=== PATIENT | male | born 1990 | race Caucasian/White ===

== ENCOUNTER 2017-02-12 21:15 | Emergency (ER) | payer MEDICAID, OTHER ==
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
[2017-02-12] MEDS ORDERED: Ketorolac 60 MG/2 ML SDV IM ONE (21:37)
[2017-02-12 22:31] VITALS: BP 108/50
--- NOTE | 2017-02-15 11:40 | CR ---
EXAM DATE: 02/12/17 PATIENT'S AGE: 26 Patient: SHAHNAZ SCHMITZ Facility: [place], [place] Site . Site : 1990 Study: XRay Extremity Left [id number]/7/2017 9:55:37 PM Ordering Physician: Doctor Pantoja Final Report: INDICATION: toe injury TECHNIQUE: Three views of the left great toe COMPARISON: None FINDINGS: Bones: Remote posttraumatic deformity of the interphalangeal joints of the left great toe medially. No acute fractures or bone lesions. Joint spaces: Degenerative change along the 1st metatarsophalangeal joint. Soft tissues: Unremarkable. IMPRESSION: No acute bony abnormality of the left great toe. Dictated by Tommie Bond MD @ 02/12/2017 10:06:39 PM Dictated by: Tommie Bond MD @ 02/12/2017 22:07:12 (Electronic Signature) Report Signed by Proxy. [email or web address]
== END 2017-02-12 22:25 | disposition home or self-care (01) ==
LOC: MW.ED 21:15
DX: S90.112A Contusion of left great toe without damage to nail, initial encounter (principal); W19.XXXA Unspecified fall, initial encounter; Y93.B2 Activity, push-ups, pull-ups, sit-ups
CPT/HCPCS: 73660-26-TA; 73660-TA; 99282; 99283

== ENCOUNTER 2019-06-09 07:36 | Emergency (ER) | payer MEDICAID ==
[2019-06-09] MEDS ORDERED: Sodium Chloride 0.9% 2.5 ML Syringe FLUSH PRN (07:40)
[2019-06-09] MEDS ORDERED: Sodium Chloride 0.9% 1,000 ML IV ONE (07:40)
[2019-06-09] MEDS ORDERED: Ketorolac 30 MG/ML SDV IVPUSH ONE (07:40)
[2019-06-09] MEDS ORDERED: Sodium Chloride 0.9% 10 ML Syringe FLUSH PRN (07:40)
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
[2019-06-09 08:14] LABS: BLOOD UREA NITROGEN,BUN 13 mg/dL (7.0-18.0); CARBON DIOXIDE,CO2 27.5 mmol/L (21.0-32.0); CHLORIDE,CL 106 mmol/L (98-107); GLUCOSE RANDOM 105 mg/dL (74-106); LIPASE 91 U/L (73-393); POTASSIUM,K 4.2 mmol/L (3.5-5.1); SODIUM,NA 143 mmol/L (136-148)
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
[2019-06-09] MEDS ORDERED: Diphtheria,Pertussis(Acell),Tetanus Vaccine 0.5 ML Syringe IM ONE (09:28)
[2019-06-09 09:41] VITALS: BP 137/87; PULSE 60
== END 2019-06-09 09:39 | disposition home or self-care (01) ==
LOC: MW.ED 07:36
DX: S93.402A Sprain of unspecified ligament of left ankle, initial encounter (principal); S60.512A Abrasion of left hand, initial encounter; Z23 Encounter for immunization; Z88.2 Allergy status to sulfonamides; V89.2XXA Person injured in unspecified motor-vehicle accident, traffic, initial encounter; Y92.410 Unspecified street and highway as the place of occurrence of the external cause
CPT/HCPCS: 70450; 71045; 71260; 72125; 73130; 73562; 73590; 73610; 80053; 81001; 83690; 85025; 90471; 90715; 96361; 96374; 99285; J1885; J7040; 99284

== ENCOUNTER 2020-03-06 15:06 | Emergency (ER) | payer MEDICAID ==
[2020-03-06 15:22] VITALS: BP 135/68; PULSE 87
--- NOTE | 2020-03-06 16:31 | CR ---
Right hand: 3 views of the right hand were obtained. Comparison: No previous hand study is available. Old fracture is noted within the 5th metacarpal shaft. This appears to be healed. Joint spaces are preserved. No acute fracture or other bony abnormality is appreciated. Mild soft tissue swelling appears to be present. Impression: 1. Old healed fracture within 5th metacarpal. 2. Mild soft tissue swelling. 3. No definite acute bony abnormality is appreciated. If patient remains symptomatic, repeat study in 10-14 days could be considered. Diagnostic code #3 This report was dictated in MDT
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
== END 2020-03-06 16:49 | disposition home or self-care (01) ==
LOC: MW.ED 15:06
DX: S60.221A Contusion of right hand, initial encounter (principal); F17.210 Nicotine dependence, cigarettes, uncomplicated; Z88.2 Allergy status to sulfonamides; Y04.0XXA Assault by unarmed brawl or fight, initial encounter
CPT/HCPCS: 73130-26-RT; 73130-RT; 99283-25

== ENCOUNTER 2021-02-26 12:24 | Observation (INO) | payer MEDICAID, OTHER ==
--- NOTE | 2021-02-26 12:51 | EDM.PDOC ---
ED HPI GENERAL MEDICAL PROBLEM - General Chief Complaint: Chest Pain Stated Complaint: CHEST PAIN NUMBNESS IN TOUNGUE Time Seen by Provider: 02/26/21 12:26 Source of Information: Reports: Patient History Limitations: Reports: No Limitations - History of Present Illness INITIAL COMMENTS - FREE TEXT/NARRATIVE: Patient is a 30-year-old male presents today for left-sided chest pain that radiates to the left arm he states that is like a squeezing feeling. States that make the pain better or worse has not tried any medication for the pain at home. Patient denies any other associated symptoms or shortness of breath fever chills or cough. He does report some low back pain that he chronically has denies any urinary incontinence saddle anesthesia or other concerning symptoms. chest Pain Score (Numeric/FACES): 3 - Related Data Allergies Allergy/AdvReac Type Severity Reaction Status Date / Time Sulfa (Sulfonamide Allergy Hives Verified 02/26/21 12:25 Antibiotics) Home Meds: Home Meds Famotidine 10 mg PO DAILY 02/26/21 [History] Past Medical History HEENT History: Reports: None Cardiovascular History: Reports: None Respiratory History: Reports: None Gastrointestinal History: Reports: None Genitourinary History: Reports: None Neurological History: Reports: None Psychiatric History: Reports: Anxiety, PTSD Endocrine/Metabolic History: Reports: None Hematologic History: Reports: None Immunologic History: Reports: None Oncologic (Cancer) History: Reports: None Dermatologic History: Reports: None - Infectious Disease History Infectious Disease History: Reports: None - Past Surgical History Head Surgeries/Procedures: Reports: None HEENT Surgical History: Reports: Tonsillectomy Musculoskeletal Surgical History: Reports: Other (See Below) Other Musculoskeletal Surgeries/Procedures:: right femur fx, and R hand Social & Family History - Family History Family Medical History: No Pertinent Family History - Tobacco Use Tobacco Use Status *Q: Current Every Day Tobacco User Years of Tobacco use: 20 Packs/Tins Daily: 1 - Caffeine Use Caffeine Use: Reports: Coffee - Recreational Drug Use Recreational Drug Use: Yes Recreational Drug Type: Reports: Marijuana/Hashish ED ROS GENERAL - Review of Systems Review Of Systems: See Below Constitutional: Reports: No Symptoms HEENT: Reports: No Symptoms Respiratory: Reports: No Symptoms Cardiovascular: Reports: Chest Pain Endocrine: Reports: No Symptoms GI/Abdominal: Reports: No Symptoms : Reports: No Symptoms Musculoskeletal: Reports: No Symptoms Skin: Reports: No Symptoms Neurological: Reports: No Symptoms Psychiatric: Reports: No Symptoms Hematologic/Lymphatic: Reports: No Symptoms Immunologic: Reports: No Symptoms ED EXAM, GENERAL - Physical Exam Exam: See Below Exam Limited By: No Limitations General Appearance: Alert, WD/WN, No Apparent Distress Respiratory/Chest: No Respiratory Distress, Lungs Clear, Normal Breath Sounds Cardiovascular: Normal Peripheral Pulses, Regular Rate, Rhythm GI/Abdominal: Normal Bowel Sounds, Soft, Non-Tender Extremities: Normal Inspection, Normal Range of Motion Neurological: Alert, Oriented, CN II-XII Intact, Normal Cognition, Normal Gait #1 Interpretation EKG Date: 02/26/21 Time: 12:19 Rhythm: NSR Rate (Beats/Min): 65 ST-T: Normal #2 Interpretation EKG Date: 02/26/21 Time: 18:03 Rhythm: Other (sinus mina) Rate (Beats/Min): 42 ST-T: Normal Course - Vital Signs Last Recorded V/S: Last Vital Signs Temp 97.0 F 02/26/21 12:26 Pulse 43 L 02/26/21 17:57 Resp 18 02/26/21 17:57 BP 116/81 02/26/21 17:57 Pulse Ox 98 02/26/21 17:57 - Orders/Labs/Meds Orders: Active Orders 24 hr Category Date Time Status Patient Status [ADT] Routine ADT 02/26/21 18:17 Active EKG 12 Lead [EKG Documentation Completion] [RC] STAT Care 02/26/21 13:04 Active EKG 12 Lead [EKG Documentation Completion] [RC] STAT Care 02/26/21 17:56 Active Labs: Laboratory Tests 02/26/21 02/26/21 02/26/21 Range/Units 12:35 12:35 15:55 WBC 5.53 (4.0-11.0) K/uL RBC 5.07 (4.50-5.90) M/uL Hgb 14.7 (13.0-17.0) g/dL Hct 43.4 (38.0-50.0) % MCV 85.6 (80.0-98.0) fL MCH 29.0 (27.0-32.0) pg MCHC 33.9 (31.0-37.0) g/dL RDW Std Deviation 40.1 (28.0-62.0) fl RDW Coeff of Marcelina 13 (11.0-15.0) % Plt Count 235 (150-400) K/uL MPV 10.70 (7.40-12.00) fL Neut % (Auto) 48.2 (48.0-80.0) % Lymph % (Auto) 36.2 (16.0-40.0) % Coke % (Auto) 11.0 (0.0-15.0) % Eos % (Auto) 4.2 (0.0-7.0) % Baso % (Auto) 0.4 (0.0-1.5) % Neut # (Auto) 2.7 (1.4-5.7) K/uL Lymph # (Auto) 2.0 (0.6-2.4) K/uL Coke # (Auto) 0.6 (0.0-0.8) K/uL Eos # (Auto) 0.2 (0.0-0.7) K/uL Baso # (Auto) 0.0 (0.0-0.1) K/uL Nucleated RBC % 0.0 /100WBC Nucleated RBCs # 0 K/uL Sodium 139 (136-148) mmol/L Potassium 3.9 (3.5-5.1) mmol/L Chloride 104 (98-107) mmol/L Carbon Dioxide 27.0 (21.0-32.0) mmol/L BUN 11 (7.0-18.0) mg/dL Creatinine 0.8 (0.8-1.3) mg/dL Est Cr Clr Drug Dosing 154.13 mL/min Estimated GFR (MDRD) > 60.0 ml/min Glucose 98 (74-106) mg/dL Calcium 8.7 (8.5-10.1) mg/dL Phosphorus 3.1 (2.6-4.7) mg/dL Magnesium 2.0 (1.8-2.4) mg/dL Total Bilirubin 0.5 (0.2-1.0) mg/dL AST 31 (15-37) IU/L ALT 80 H (14-63) IU/L Alkaline Phosphatase 63 (46-116) U/L Creatine Kinase 393 H 349 H (26-308) U/L Troponin I < 0.050 < 0.050 (0.000-0.056) ng/mL Total Protein 7.3 (6.4-8.2) g/dL Albumin 4.0 (3.4-5.0) g/dL Globulin 3.3 (2.6-4.0) g/dL Albumin/Globulin Ratio 1.2 (0.9-1.6) Lipase 64 L (73-393) U/L SARS-CoV-2 RNA (CLIFFORD) (NEGATIVE) 02/26/21 Range/Units 17:30 WBC (4.0-11.0) K/uL RBC (4.50-5.90) M/uL Hgb (13.0-17.0) g/dL Hct (38.0-50.0) % MCV (80.0-98.0) fL MCH (27.0-32.0) pg MCHC (31.0-37.0) g/dL RDW Std Deviation (28.0-62.0) fl RDW Coeff of Marcelina (11.0-15.0) % Plt Count (150-400) K/uL MPV (7.40-12.00) fL Neut % (Auto) (48.0-80.0) % Lymph % (Auto) (16.0-40.0) % Coke % (Auto) (0.0-15.0) % Eos % (Auto) (0.0-7.0) % Baso % (Auto) (0.0-1.5) % Neut # (Auto) (1.4-5.7) K/uL Lymph # (Auto) (0.6-2.4) K/uL Coke # (Auto) (0.0-0.8) K/uL Eos # (Auto) (0.0-0.7) K/uL Baso # (Auto) (0.0-0.1) K/uL Nucleated RBC % /100WBC Nucleated RBCs # K/uL Sodium (136-148) mmol/L Potassium (3.5-5.1) mmol/L Chloride (98-107) mmol/L Carbon Dioxide (21.0-32.0) mmol/L BUN (7.0-18.0) mg/dL Creatinine (0.8-1.3) mg/dL Est Cr Clr Drug Dosing mL/min Estimated GFR (MDRD) ml/min Glucose (74-106) mg/dL Calcium (8.5-10.1) mg/dL Phosphorus (2.6-4.7) mg/dL Magnesium (1.8-2.4) mg/dL Total Bilirubin (0.2-1.0) mg/dL AST (15-37) IU/L ALT (14-63) IU/L Alkaline Phosphatase (46-116) U/L Creatine Kinase (26-308) U/L Troponin I (0.000-0.056) ng/mL Total Protein (6.4-8.2) g/dL Albumin (3.4-5.0) g/dL Globulin (2.6-4.0) g/dL Albumin/Globulin Ratio (0.9-1.6) Lipase (73-393) U/L SARS-CoV-2 RNA ([facility]ORD) NEGATIVE (NEGATIVE) Meds: Medications Discontinued Medications Generic Name Dose Route Start Last Admin Trade Name Garry PRN Reason Stop Dose Admin Aspirin 324 mg 02/26/21 14:05 02/26/21 14:13 Aspirin 81 Mg Tab.Chew PO 02/26/21 14:06 324 mg ONETIME ONE Administration Iopamidol 50 ml 02/26/21 17:14 02/26/21 17:26 Iopamidol 755 Mg/Ml 50 Ml Bottle IV 02/26/21 17:15 50 ml ONETIME STA Administration - Re-Assessments/Exams Free Text/Narrative Re-Assessment/Exam: 02/26/21 18:18 Heart rate has been bradycardic down to the 38 to the mid 40s. Patient is symptomatic he is lightheaded when he walks. We spoke to the cardiology [place] and he states that due to his size it could be sleep apnea recommend observing patient overnight. We spoke to hospitalist and patient will be admitted. Departure - Departure Time of Disposition: 18:17 Disposition: Refer to Observation Condition: Good Clinical Impression: Bradycardia Critical Care Note - Critical Care Note Total Time (mins): 45 Comments: Critical Care Procedure Note Authorized and Performed by: Dr. Batres Total critical care time: Approximately Due to a high probability of clinically significant, life threatening deterioration, the patient required my highest level of preparedness to intervene emergently and I personally spent this critical care time directly and personally managing the patient. This critical care time included obtaining a history; examining the patient; pulse oximetry; ordering and review of studies; arranging urgent treatment with development of a management plan; evaluation of patient's response to treatment; frequent reassessment; and, discussions with other providers. This critical care time was performed to assess and manage the high probability of imminent, life-threatening deterioration that could result in multi-organ failure. It was exclusive of separately billable procedures and treating other patients and teaching time. Sepsis Event Note (ED) - Evaluation Sepsis Screening Result: No Definite Risk - Focused Exam Vital Signs: Vital Signs Temp Pulse Resp BP Pulse Ox 02/26/21 17:57 43 L 18 116/81 98 02/26/21 16:45 64 18 112/72 98 02/26/21 16:06 74 18 118/74 98 02/26/21 15:03 48 L 18 111/56 L 96 02/26/21 14:14 64 18 117/66 98 02/26/21 13:41 62 18 125/74 98 02/26/21 13:16 58 L 18 123/75 98 02/26/21 12:26 97.0 F 68 18 134/95 H 97 - My Orders Last 24 Hours: My Active Orders 02/26/21 13:04 EKG 12 Lead [EKG Documentation Completion] [RC] STAT 02/26/21 17:56 EKG 12 Lead [EKG Documentation Completion] [RC] STAT 02/26/21 18:17 Patient Status [ADT] Routine - Assessment/Plan Last 24 Hours: My Active Orders 02/26/21 13:04 EKG 12 Lead [EKG Documentation Completion] [RC] STAT 02/26/21 17:56 EKG 12 Lead [EKG Documentation Completion] [RC] STAT 02/26/21 18:17 Patient Status [ADT] Routine Plan: Patient is a 30-year-old male presents today for left-sided chest pain. Patient has a heart score of 0. Will obtain troponins labs EKG and reassess.
[2021-02-26 13:45] LABS: BLOOD UREA NITROGEN,BUN 11 mg/dL (7.0-18.0); CHLORIDE,CL 104 mmol/L (98-107); GLUCOSE RANDOM 98 mg/dL (74-106); LIPASE 64 U/L (73-393); POTASSIUM,K 3.9 mmol/L (3.5-5.1); SODIUM,NA 139 mmol/L (136-148)
--- NOTE | 2021-02-26 13:48 | CR ---
INDICATION: Left-sided chest pain TECHNIQUE: Chest 1 views COMPARISON: 06/09/2019 FINDINGS: Cardiovascular and mediastinum: Heart size and vasculature are normal in caliber and appearance. Lungs and pleural spaces: Lungs are clear. No sign of infiltrate or mass. No sign of pleural effusion. No pneumothorax. Bones and soft tissues: No significant findings. IMPRESSION: No acute findings and no significant changes from the prior exam. Dictated by Aryan Luther MD @ 02/26/2021 1:47:[address] Aryan Luther @ Feb 26 2021 1:47PM
[2021-02-26] MEDS ORDERED: Aspirin 81 MG Tab.Chew PO ONE (14:05)
[2021-02-26] MEDS ORDERED: Iopamidol 755 MG/ML 50 ML Bottle IV STA (17:14)
--- NOTE | 2021-02-26 18:20 | CT ---
DATE: 02/26/2021. CLINICAL HISTORY: Patient with lightheadedness and headaches. TECHNIQUE: Standard helical CT image acquisition of the brain was performed prior to and following the administration of intravenous contrast. COMPARISON: Head CT dated 06/09/2019. FINDINGS: There is no intracranial hemorrhage. No extra-axial collection, mass effect, or midline shift. Stuart-white matter differentiation is maintained. Ventricles are normal in size and morphology for patient age. No evidence of pathologic intracranial enhancement. The calvarium is unremarkable. The orbits are unremarkable. The paranasal sinuses are unremarkable. The mastoid air cells are unremarkable. The soft tissues are unremarkable. IMPRESSION: No CT evidence of acute intracranial abnormality or pathologic intracranial enhancement. Please note that all CT scans at this facility use dose modulation, iterative reconstruction, and/or weight-based dosing when appropriate to reduce radiation dose to as low as reasonably achievable. Dictated by Mickey Castro MD @ 02/26/2021 6:19:[address] Mickey Castro @ Feb 26 2021 6:19PM
[2021-02-26] MEDS ORDERED: Albuterol/Ipratropium 3.0-0.5 MG/3 ML Neb Soln NEB PRN (18:57)
[2021-02-26] MEDS ORDERED: Morphine 10 MG/ML Syringe IVPUSH PRN (18:57)
[2021-02-26] MEDS ORDERED: Ondansetron 4 MG/2 ML SDV IVPUSH PRN (18:57)
[2021-02-26] MEDS ORDERED: Acetaminophen 325 MG Tab PO PRN (18:57)
--- NOTE | 2021-02-26 19:04 | PCM.HP.2 ---
H&P History of Present Illness - General Date of Service: 02/27/21 Admit Problem/Dx: Admission Diagnosis/Problem Admission Diagnosis/Problem Bradycardia Source of Information: Patient History Limitations: Reports: No Limitations - History of Present Illness Initial Comments - Free Text/Narative: Patient is a 30 y/o M with no significant PMH comes in for chest discomfort that started this AM after he woke up. He states he had his coffee this AM and soon after felt a dull aching pain in his left chest. He didnt think much of it but later he went to [facility] and felt his pain was worse, he also felt warm and flushed and dizzy. Denied any similar episodes in past. Unsure if he snores at night. States he has gained alot of weight for past few years. as been eating and drinking well. Denied palpitations, N/V abdominal pain, fever, chills, syncope, urinary symptoms. Patient has significant family h/o cardiac events, states his mom of sudden cardiac arrest in her sleep. in ER labs were unremarkable, troponin negative, ekg showed sinus bradycardia, on tele his HR dipped to as low as in 30s and jumped right back up to 50s to 60s. cardiology in [facility] was consulted, no indication for transfer, recommended overnight observation and outpatient sleep study. Patient was admitted for observation chest Pain Score (Numeric/FACES): 3 - Related Data Allergies/Adverse Reactions: Allergies Allergy/AdvReac Type Severity Reaction Status Date / Time Sulfa (Sulfonamide Allergy Hives Verified 02/26/21 20:10 Antibiotics) Home Medications: Home Meds Famotidine 10 mg PO DAILY 02/26/21 [History] Past Medical History HEENT History: Reports: None Cardiovascular History: Reports: None Respiratory History: Reports: None Gastrointestinal History: Reports: None Genitourinary History: Reports: None Neurological History: Reports: None Psychiatric History: Reports: Anxiety, PTSD Endocrine/Metabolic History: Reports: None Hematologic History: Reports: None Immunologic History: Reports: None Oncologic (Cancer) History: Reports: None Dermatologic History: Reports: None - Infectious Disease History Infectious Disease History: Reports: None - Past Surgical History Head Surgeries/Procedures: Reports: None HEENT Surgical History: Reports: Tonsillectomy Musculoskeletal Surgical History: Reports: Other (See Below) Other Musculoskeletal Surgeries/Procedures:: right femur fx, and R hand Social & Family History - Family History Cardiac: Reports: Hypertension, Other (See Below) (cardiac arrest, mother) - Tobacco Use Tobacco Use Status *Q: Current Every Day Tobacco User Years of Tobacco use: 20 Packs/Tins Daily: 1 - Caffeine Use Caffeine Use: Reports: Coffee - Recreational Drug Use Recreational Drug Use: Yes Recreational Drug Type: Reports: Marijuana/Hashish H&P Review of Systems - Review of Systems: Review Of Systems: See Below General: Reports: Diaphoresis. Denies: Fever, Chills, Malaise, Weight Loss, Weight Gain HEENT: Denies: Dysphasia, Headaches, Sinus Congestion, Vertigo, Visual Changes Pulmonary: Denies: Shortness of Breath, Wheezing, Sputum Cardiovascular: Reports: Chest Pain, Lightheadedness. Denies: Palpitations, Dyspnea on Exertion, Orthopnea, Syncope Gastrointestinal: Denies: Abdominal Pain, Anorexia, Black Stool, Nausea Genitourinary: Denies: Dysuria, Frequency Musculoskeletal: Denies: Neck Pain, Shoulder Pain Skin: Denies: Cyanosis, Jaundice, Mottled Psychiatric: Denies: Confusion, Depression Neurological: Reports: Dizziness. Denies: Confusion, Headache, Paresthesia, Difficulty Walking, Weakness, Change in Speech, Gait Disturbance Hematologic/Lymphatic: Denies: Anemia, Easy Bleeding Exam - Exam Exam: See Below - Vital Signs Vital Signs: Last Vital Signs Temp 36.1 C 02/26/21 12:26 Pulse 43 L 02/26/21 17:57 Resp 18 02/26/21 17:57 BP 116/81 02/26/21 17:57 Pulse Ox 98 02/26/21 17:57 Weight: 124.738 kg - Exam General: Alert, Oriented, Cooperative HEENT: Conjunctiva Clear Neck: Supple, Trachea Midline Lungs: Clear to Auscultation, Normal Respiratory Effort Cardiovascular: Regular Rate, Regular Rhythm, Normal S1, Normal S2 GI/Abdominal Exam: Normal Bowel Sounds, Soft, Non-Tender Back Exam: Normal Inspection Skin: Warm, Dry Neurological: Cranial Nerves Intact, Strength Equal Bilateral, Normal Gait, Normal Speech, Normal Tone, Sensation Intact. No: Focal Deficit - Patient Data Lab Results Last 24 hrs: Laboratory Results - last 24 hr 02/26/21 02/26/21 02/26/21 Range/Units 12:35 12:35 15:55 WBC 5.53 (4.0-11.0) K/uL RBC 5.07 (4.50-5.90) M/uL Hgb 14.7 (13.0-17.0) g/dL Hct 43.4 (38.0-50.0) % MCV 85.6 (80.0-98.0) fL MCH 29.0 (27.0-32.0) pg MCHC 33.9 (31.0-37.0) g/dL RDW Std Deviation 40.1 (28.0-62.0) fl RDW Coeff of Marcelina 13 (11.0-15.0) % Plt Count 235 (150-400) K/uL MPV 10.70 (7.40-12.00) fL Neut % (Auto) 48.2 (48.0-80.0) % Lymph % (Auto) 36.2 (16.0-40.0) % [place] % (Auto) 11.0 (0.0-15.0) % Eos % (Auto) 4.2 (0.0-7.0) % Baso % (Auto) 0.4 (0.0-1.5) % Neut # (Auto) 2.7 (1.4-5.7) K/uL Lymph # (Auto) 2.0 (0.6-2.4) K/uL [place] # (Auto) 0.6 (0.0-0.8) K/uL Eos # (Auto) 0.2 (0.0-0.7) K/uL Baso # (Auto) 0.0 (0.0-0.1) K/uL Nucleated RBC % 0.0 /100WBC Nucleated RBCs # 0 K/uL Sodium 139 (136-148) mmol/L Potassium 3.9 (3.5-5.1) mmol/L Chloride 104 (98-107) mmol/L Carbon Dioxide 27.0 (21.0-32.0) mmol/L BUN 11 (7.0-18.0) mg/dL Creatinine 0.8 (0.8-1.3) mg/dL Est Cr Clr Drug Dosing 154.13 mL/min Estimated GFR (MDRD) > 60.0 ml/min Glucose 98 (74-106) mg/dL Calcium 8.7 (8.5-10.1) mg/dL Phosphorus 3.1 (2.6-4.7) mg/dL Magnesium 2.0 (1.8-2.4) mg/dL Total Bilirubin 0.5 (0.2-1.0) mg/dL AST 31 (15-37) IU/L ALT 80 H (14-63) IU/L Alkaline Phosphatase 63 (46-116) U/L Creatine Kinase 393 H 349 H (26-308) U/L Troponin I < 0.050 < 0.050 (0.000-0.056) ng/mL Total Protein 7.3 (6.4-8.2) g/dL Albumin 4.0 (3.4-5.0) g/dL Globulin 3.3 (2.6-4.0) g/dL Albumin/Globulin Ratio 1.2 (0.9-1.6) Lipase 64 L (73-393) U/L SARS-CoV-2 RNA (CLIFFORD) (NEGATIVE) 02/26/21 Range/Units 17:30 WBC (4.0-11.0) K/uL RBC (4.50-5.90) M/uL Hgb (13.0-17.0) g/dL Hct (38.0-50.0) % MCV (80.0-98.0) fL MCH (27.0-32.0) pg MCHC (31.0-37.0) g/dL RDW Std Deviation (28.0-62.0) fl RDW Coeff of Marcelina (11.0-15.0) % Plt Count (150-400) K/uL MPV (7.40-12.00) fL Neut % (Auto) (48.0-80.0) % Lymph % (Auto) (16.0-40.0) % [place] % (Auto) (0.0-15.0) % Eos % (Auto) (0.0-7.0) % Baso % (Auto) (0.0-1.5) % Neut # (Auto) (1.4-5.7) K/uL Lymph # (Auto) (0.6-2.4) K/uL [place] # (Auto) (0.0-0.8) K/uL Eos # (Auto) (0.0-0.7) K/uL Baso # (Auto) (0.0-0.1) K/uL Nucleated RBC % /100WBC Nucleated RBCs # K/uL Sodium (136-148) mmol/L Potassium (3.5-5.1) mmol/L Chloride (98-107) mmol/L Carbon Dioxide (21.0-32.0) mmol/L BUN (7.0-18.0) mg/dL Creatinine (0.8-1.3) mg/dL Est Cr Clr Drug Dosing mL/min Estimated GFR (MDRD) ml/min Glucose (74-106) mg/dL Calcium (8.5-10.1) mg/dL Phosphorus (2.6-4.7) mg/dL Magnesium (1.8-2.4) mg/dL Total Bilirubin (0.2-1.0) mg/dL AST (15-37) IU/L ALT (14-63) IU/L Alkaline Phosphatase (46-116) U/L Creatine Kinase (26-308) U/L Troponin I (0.000-0.056) ng/mL Total Protein (6.4-8.2) g/dL Albumin (3.4-5.0) g/dL Globulin (2.6-4.0) g/dL Albumin/Globulin Ratio (0.9-1.6) Lipase (73-393) U/L SARS-CoV-2 RNA (CLIFFORD) NEGATIVE (NEGATIVE) Result Diagrams: 02/26/21 12:35 02/26/21 12:35 Sepsis Event Note - Evaluation Sepsis Screening Result: No Definite Risk - Focused Exam Vital Signs: Vital Signs Temp Pulse Resp BP Pulse Ox 02/26/21 17:57 43 L 18 116/81 98 02/26/21 16:45 64 18 112/72 98 02/26/21 16:06 74 18 118/74 98 02/26/21 15:03 48 L 18 111/56 L 96 02/26/21 14:14 64 18 117/66 98 02/26/21 13:41 62 18 125/74 98 02/26/21 13:16 58 L 18 123/75 98 02/26/21 12:26 36.1 C 68 18 134/95 H 97 - Problem List (1) Obesity SNOMED Code(s): 943761197, 755479080 ICD Code: E66.9 - OBESITY, UNSPECIFIED Status: Acute Current Visit: Yes (2) Chest pain SNOMED Code(s): 46295011 ICD Code: R07.9 - CHEST PAIN, UNSPECIFIED Status: Acute Current Visit: Yes (3) Bradycardia SNOMED Code(s): 39548219 ICD Code: R00.1 - BRADYCARDIA, UNSPECIFIED Status: Acute Current Visit: Yes (4) Dizziness SNOMED Code(s): 804657779, 729772231 ICD Code: R42 - DIZZINESS AND GIDDINESS Status: Acute Current Visit: Yes Problem List Initiated/Reviewed/Updated: Yes Orders Last 24hrs: Active Orders 24 hr Category Date Time Status Patient Status [ADT] Routine ADT 02/26/21 18:17 Active Ambulate [RC] ASDIRECTED Care 02/26/21 18:57 Ordered Antiembolic Devices [RC] PER UNIT ROUTINE Care 02/26/21 18:58 Ordered EKG 12 Lead [EKG Documentation Completion] [RC] STAT Care 02/26/21 13:04 Active EKG 12 Lead [EKG Documentation Completion] [RC] STAT Care 02/26/21 17:56 Active Oxygen Therapy [RC] PRN Care 02/26/21 18:57 Ordered Pulse Oximetry [RC] PRN Care 02/26/21 18:57 Ordered RT Aerosol Therapy [RC] ASDIRECTED Care 02/26/21 18:59 Ordered VTE/DVT Education [RC] PER UNIT ROUTINE Care 02/26/21 18:57 Ordered Vital Signs [RC] Q4H Care 02/26/21 18:57 Ordered Heart Healthy Diet [DIET] Diet 02/26/21 Dinner Ordered GLYCOSYLATED HEMOGLOBIN,HGBA1C [CHEM] Routine Lab 02/26/21 19:01 Ordered LIPID PANEL [CHEM] Routine Lab 02/26/21 19:02 Ordered TROPONIN I [CHEM] Routine Lab 02/26/21 19:00 Ordered TSH REFLEX TO FREE T4 [CHEM] Routine Lab 02/26/21 19:01 Ordered Acetaminophen [TylenoL] Med 02/26/21 18:57 Ordered 650 mg PO Q4H PRN Albuterol/Ipratropium [DuoNeb 3.0-0.5 MG/3 ML] Med 02/26/21 18:57 Ordered 3 ml NEB Q4HRRT PRN Lactated Ringers @ 125 MLS/HR(1000ml) Med 02/26/21 19:00 Ordered Lactated Ringers [Ringers, Lactated] 1,000 ml IV ASDIRECTED Morphine Med 02/26/21 18:57 Ordered 1 mg IVPUSH Q3H PRN Ondansetron [Zofran] Med 02/26/21 18:57 Ordered 4 mg IVPUSH Q4H PRN Sequential Compression Device [OM.PC] Per Unit Routine Oth 02/26/21 18:57 Ordered Resuscitation Status Routine Resus Stat 02/26/21 18:57 Ordered Medication Orders Acetaminophen (Acetaminophen 325 Mg Tab) 650 mg PO Q4H PRN PRN Reason: Pain (Mild 1-3)/fever Albuterol/Ipratropium (Albuterol/Ipratropium 3.0-0.5 Mg/3 Ml Neb Soln) 3 ml NEB Q4HRRT PRN PRN Reason: Shortness Of Breath/wheezing Lactated Ringer's (Ringers, Lactated) 1,000 mls @ 125 mls/hr IV ASDIRECTED [facility] Morphine Sulfate (Morphine 10 Mg/Ml Syringe) 1 mg IVPUSH Q3H PRN PRN Reason: Pain (severe 7-10) Stop: 02/27/21 18:58 Ondansetron HCl (Ondansetron 4 Mg/2 Ml Sdv) 4 mg IVPUSH Q4H PRN PRN Reason: Nausea/Vomiting Assessment/Plan Comment:: 30 y/o M admitted for bradycardia and dizziness EKG shows no ischemic changes or heart block, no on any rate limiting meds troponin negative Possible component on SHELLY? cont tele monitoring trend troponin avoid any b antonietta, Ca channel antonietta check Hba1c, TSH, lipids start ASA, low dose statin Zio patch upon dc referral for sleep study obtain 2d ECHO
[2021-02-26 19:35] LABS: HEMOGLOBIN A1C 5.8 %
[2021-02-26] MEDS: Lactated Ringers 1,000 ML IV SCH (20:00)
[2021-02-27] MEDS: Lactated Ringers 1,000 ML IV SCH (03:59)
[2021-02-27 07:58] VITALS: BP 123/77; PULSE 42
[2021-02-27] MEDS ORDERED: Famotidine 20 MG Tab PO SCH (09:00)
[2021-02-27] MEDS ORDERED: Aspirin 81 MG Tab.Chew PO SCH (09:00)
--- NOTE | 2021-02-27 12:47 | PCM.DCSUM1 ---
Discharge Summary - Hospital Course Free Text/Narrative:: Patient is a 30 y/o M with no significant PMH comes in for chest discomfort that started this AM after he woke up. He states he had his coffee this AM and soon after felt a dull aching pain in his left chest. He didnt think much of it but later he went to [facility] and felt his pain was worse, he also felt warm and flushed and dizzy. Denied any similar episodes in past. Unsure if he snores at night. States he has gained alot of weight for past few years. as been eating and drinking well. Denied palpitations, N/V abdominal pain, fever, chills, syncope, urinary symptoms. Patient has significant family h/o cardiac events, states his mom of sudden cardiac arrest in her sleep. in ER labs were unremarkable for any heart block showed sinus bradycardia, troponin negative, ekg showed sinus bradycardia, on tele his HR dipped to as low as in 30s and jumped right back up to 50s to 60s. cardiology in [facility] was consulted, no indication for transfer, recommended overnight observation and outpatient sleep study. Patient was admitted for observation. Troponins were trended which were all negative, patient was monitored overnight on telemetry which showed sinus bradycardia and bradycardia arrhythmia. No heart block or missed beats noted. Patient's dizziness had resolved the next day. He did say he has history of spondylitis and whenever he turns his head he sometimes gets dizzy so that could have been a contributing factor to his dizziness on top of being in the heat the day he came in. Family was at bedside the next day who confirmed that patient has significant snoring history and does have apneic episodes overnight. Patients bradycardia was most likely secondary to undiagnosed sleep apnea and was referred for sleep study. 2D echo was obtained as well the report of which is still pending. Patient was started on low-dose aspirin and low-dose statin and routine labs were checked as well which were all normal except for slightly elevated cholesterol of 214. Patient was counseled about quitting smoking as well, and maintaining a healthy lifestyle and losing some weight. Patient was hemodynamically stable was able to walk around without dizziness, presyncope. Patient was referred to a tailings worker upon discharge and recommended to follow-up with his primary care physician as well. Diagnosis: Stroke: No - Discharge Data Discharge Date: 02/27/21 Discharge Disposition: Home, Self-Care 01 Condition: Stable - Referral to Home Health Primary Care Physician: Jorge Lisa MD - Discharge Diagnosis/Problem(s) (1) Obesity SNOMED Code(s): 305887362, 875956825 ICD Code: E66.9 - OBESITY, UNSPECIFIED Status: Acute Current Visit: Yes (2) Chest pain SNOMED Code(s): 30904094 ICD Code: R07.9 - CHEST PAIN, UNSPECIFIED Status: Acute Current Visit: Yes (3) Bradycardia SNOMED Code(s): 23378579 ICD Code: R00.1 - BRADYCARDIA, UNSPECIFIED Status: Acute Current Visit: Yes (4) Dizziness SNOMED Code(s): 652547260, 628515326 ICD Code: R42 - DIZZINESS AND GIDDINESS Status: Acute Current Visit: Yes - Patient Instructions Diet: Usual Diet as Tolerated Activity: As Tolerated Driving: May Drive Today Showering/Bathing: May Shower Notify Provider of: Fever, Increased Pain, Swelling and Redness, Nausea and/or Vomiting Other/Special Instructions: Notify In case of increasing dizziness, chest pain, syncope, presyncope - Discharge Plan Prescriptions/Med Rec: Aspirin 81 mg PO DAILY #30 tab.chew atorvaSTATin [Lipitor] 10 mg PO BEDTIME #30 tablet Home Medications: Home Meds Famotidine 10 mg PO DAILY 02/26/21 [History] Aspirin 81 mg PO DAILY #30 tab.chew 02/27/21 [Rx] atorvaSTATin [Lipitor] 10 mg PO BEDTIME #30 tablet 02/27/21 [Rx] Oxygen Therapy Mode: Room Air Patient Handouts: Bradycardia, Adult Referrals: Jorge Lisa MD [Primary Care Provider] - 03/07/21 9:45 am - Discharge Summary/Plan Comment DC Time >30 min.: No - Patient Data Vitals - Most Recent: Last Vital Signs Temp 36.4 C 02/27/21 07:58 Pulse 42 L 02/27/21 07:58 Resp 16 02/27/21 07:58 BP 123/77 02/27/21 07:58 Pulse Ox 96 02/27/21 07:58 Weight - Most Recent: 129.331 kg I&O - Last 24 hours: Intake & Output 02/26/21 02/27/21 02/27/21 22:59 06:59 14:59 Intake Total 450 Output Total 800 Balance -350 Lab Results - Last 24 hrs: Laboratory Results - last 24 hr 02/26/21 02/26/21 02/26/21 Range/Units 12:35 12:35 12:35 WBC 5.53 (4.0-11.0) K/uL RBC 5.07 (4.50-5.90) M/uL Hgb 14.7 (13.0-17.0) g/dL Hct 43.4 (38.0-50.0) % MCV 85.6 (80.0-98.0) fL MCH 29.0 (27.0-32.0) pg MCHC 33.9 (31.0-37.0) g/dL RDW Std Deviation 40.1 (28.0-62.0) fl RDW Coeff of Marcelina 13 (11.0-15.0) % Plt Count 235 (150-400) K/uL MPV 10.70 (7.40-12.00) fL Neut % (Auto) 48.2 (48.0-80.0) % Lymph % (Auto) 36.2 (16.0-40.0) % [place] % (Auto) 11.0 (0.0-15.0) % Eos % (Auto) 4.2 (0.0-7.0) % Baso % (Auto) 0.4 (0.0-1.5) % Neut # (Auto) 2.7 (1.4-5.7) K/uL Lymph # (Auto) 2.0 (0.6-2.4) K/uL [place] # (Auto) 0.6 (0.0-0.8) K/uL Eos # (Auto) 0.2 (0.0-0.7) K/uL Baso # (Auto) 0.0 (0.0-0.1) K/uL Nucleated RBC % 0.0 /100WBC Nucleated RBCs # 0 K/uL Sodium 139 (136-148) mmol/L Potassium 3.9 (3.5-5.1) mmol/L Chloride 104 (98-107) mmol/L Carbon Dioxide 27.0 (21.0-32.0) mmol/L BUN 11 (7.0-18.0) mg/dL Creatinine 0.8 (0.8-1.3) mg/dL Est Cr Clr Drug Dosing 154.13 mL/min Estimated GFR (MDRD) > 60.0 ml/min Glucose 98 (74-106) mg/dL Hemoglobin A1c 5.8 (4.5 - 6.2) % Calcium 8.7 (8.5-10.1) mg/dL Phosphorus 3.1 (2.6-4.7) mg/dL Magnesium 2.0 (1.8-2.4) mg/dL Total Bilirubin 0.5 (0.2-1.0) mg/dL AST 31 (15-37) IU/L ALT 80 H (14-63) IU/L Alkaline Phosphatase 63 (46-116) U/L Creatine Kinase 393 H (26-308) U/L Troponin I < 0.050 (0.000-0.056) ng/mL Total Protein 7.3 (6.4-8.2) g/dL Albumin 4.0 (3.4-5.0) g/dL Globulin 3.3 (2.6-4.0) g/dL Albumin/Globulin Ratio 1.2 (0.9-1.6) Triglycerides (0-200) mg/dL Cholesterol (50-200) mg/dL LDL Cholesterol, Calc (60-180) mg/dL VLDL Cholesterol (5-55) mg/dL HDL Cholesterol (40-60) mg/dL Cholesterol/HDL Ratio (3.3-6.0) Lipase 64 L (73-393) U/L TSH, Ultra Sensitive (0.36-3.74) uIU/mL SARS-CoV-2 RNA ([facility]) (NEGATIVE) 02/26/21 02/26/21 02/26/21 Range/Units 15:55 15:55 17:30 WBC (4.0-11.0) K/uL RBC (4.50-5.90) M/uL Hgb (13.0-17.0) g/dL Hct (38.0-50.0) % MCV (80.0-98.0) fL MCH (27.0-32.0) pg MCHC (31.0-37.0) g/dL RDW Std Deviation (28.0-62.0) fl RDW Coeff of Marcelina (11.0-15.0) % Plt Count (150-400) K/uL MPV (7.40-12.00) fL Neut % (Auto) (48.0-80.0) % Lymph % (Auto) (16.0-40.0) % [place] % (Auto) (0.0-15.0) % Eos % (Auto) (0.0-7.0) % Baso % (Auto) (0.0-1.5) % Neut # (Auto) (1.4-5.7) K/uL Lymph # (Auto) (0.6-2.4) K/uL [place] # (Auto) (0.0-0.8) K/uL Eos # (Auto) (0.0-0.7) K/uL Baso # (Auto) (0.0-0.1) K/uL Nucleated RBC % /100WBC Nucleated RBCs # K/uL Sodium (136-148) mmol/L Potassium (3.5-5.1) mmol/L Chloride (98-107) mmol/L Carbon Dioxide (21.0-32.0) mmol/L BUN (7.0-18.0) mg/dL Creatinine (0.8-1.3) mg/dL Est Cr Clr Drug Dosing mL/min Estimated GFR (MDRD) ml/min Glucose (74-106) mg/dL Hemoglobin A1c (4.5 - 6.2) % Calcium (8.5-10.1) mg/dL Phosphorus (2.6-4.7) mg/dL Magnesium (1.8-2.4) mg/dL Total Bilirubin (0.2-1.0) mg/dL AST (15-37) IU/L ALT (14-63) IU/L Alkaline Phosphatase (46-116) U/L Creatine Kinase 349 H (26-308) U/L Troponin I < 0.050 (0.000-0.056) ng/mL Total Protein (6.4-8.2) g/dL Albumin (3.4-5.0) g/dL Globulin (2.6-4.0) g/dL Albumin/Globulin Ratio (0.9-1.6) Triglycerides 188 (0-200) mg/dL Cholesterol 214 H (50-200) mg/dL LDL Cholesterol, Calc 126 (60-180) mg/dL VLDL Cholesterol 37 (5-55) mg/dL HDL Cholesterol 50 (40-60) mg/dL Cholesterol/HDL Ratio 4.3 (3.3-6.0) Lipase (73-393) U/L TSH, Ultra Sensitive 0.79 (0.36-3.74) uIU/mL SARS-CoV-2 RNA (CLIFFORD) NEGATIVE (NEGATIVE) 02/26/21 Range/Units 19:20 WBC (4.0-11.0) K/uL RBC (4.50-5.90) M/uL Hgb (13.0-17.0) g/dL Hct (38.0-50.0) % MCV (80.0-98.0) fL MCH (27.0-32.0) pg MCHC (31.0-37.0) g/dL RDW Std Deviation (28.0-62.0) fl RDW Coeff of Marcelina (11.0-15.0) % Plt Count (150-400) K/uL MPV (7.40-12.00) fL Neut % (Auto) (48.0-80.0) % Lymph % (Auto) (16.0-40.0) % [place] % (Auto) (0.0-15.0) % Eos % (Auto) (0.0-7.0) % Baso % (Auto) (0.0-1.5) % Neut # (Auto) (1.4-5.7) K/uL Lymph # (Auto) (0.6-2.4) K/uL [place] # (Auto) (0.0-0.8) K/uL Eos # (Auto) (0.0-0.7) K/uL Baso # (Auto) (0.0-0.1) K/uL Nucleated RBC % /100WBC Nucleated RBCs # K/uL Sodium (136-148) mmol/L Potassium (3.5-5.1) mmol/L Chloride (98-107) mmol/L Carbon Dioxide (21.0-32.0) mmol/L BUN (7.0-18.0) mg/dL Creatinine (0.8-1.3) mg/dL Est Cr Clr Drug Dosing mL/min Estimated GFR (MDRD) ml/min Glucose (74-106) mg/dL Hemoglobin A1c (4.5 - 6.2) % Calcium (8.5-10.1) mg/dL Phosphorus (2.6-4.7) mg/dL Magnesium (1.8-2.4) mg/dL Total Bilirubin (0.2-1.0) mg/dL AST (15-37) IU/L ALT (14-63) IU/L Alkaline Phosphatase (46-116) U/L Creatine Kinase (26-308) U/L Troponin I < 0.050 (0.000-0.056) ng/mL Total Protein (6.4-8.2) g/dL Albumin (3.4-5.0) g/dL Globulin (2.6-4.0) g/dL Albumin/Globulin Ratio (0.9-1.6) Triglycerides (0-200) mg/dL Cholesterol (50-200) mg/dL LDL Cholesterol, Calc (60-180) mg/dL VLDL Cholesterol (5-55) mg/dL HDL Cholesterol (40-60) mg/dL Cholesterol/HDL Ratio (3.3-6.0) Lipase (73-393) U/L TSH, Ultra Sensitive (0.36-3.74) uIU/mL SARS-CoV-2 RNA ([facility]ORD) (NEGATIVE) Med Orders - Current: Current Medications Acetaminophen (Acetaminophen 325 Mg Tab) 650 mg PO Q4H PRN PRN Reason: Pain (Mild 1-3)/fever Albuterol/Ipratropium (Albuterol/Ipratropium 3.0-0.5 Mg/3 Ml Neb Soln) 3 ml NEB Q4HRRT PRN PRN Reason: Shortness Of Breath/wheezing Aspirin (Aspirin 81 Mg Tab.Chew) 81 mg PO DAILY [facility] Last Admin: 02/27/21 08:24 Dose: 81 mg Documented by: Atorvastatin Calcium (Atorvastatin 10 Mg Tab) 10 mg PO BEDTIME [facility] Famotidine (Famotidine 20 Mg Tab) 10 mg PO DAILY [facility] Last Admin: 02/27/21 08:24 Dose: 10 mg Documented by: Lactated Ringer's (Ringers, Lactated) 1,000 mls @ 125 mls/hr IV ASDIRECTED [facility] Last Admin: 02/27/21 03:59 Dose: 125 mls/hr Documented by: Morphine Sulfate (Morphine 10 Mg/Ml Syringe) 1 mg IVPUSH Q3H PRN PRN Reason: Pain (severe 7-10) Stop: 02/27/21 18:58 Ondansetron HCl (Ondansetron 4 Mg/2 Ml Sdv) 4 mg IVPUSH Q4H PRN PRN Reason: Nausea/Vomiting Discontinued Medications Aspirin (Aspirin 81 Mg Tab.Chew) 324 mg PO ONETIME ONE Stop: 02/26/21 14:06 Last Admin: 02/26/21 14:13 Dose: 324 mg Documented by: Iopamidol (Iopamidol 755 Mg/Ml 50 Ml Bottle) 50 ml IV ONETIME STA Stop: 02/26/21 17:15 Last Admin: 02/26/21 17:26 Dose: 50 ml Documented by:
[2021-02-27] MEDS ORDERED: atorvaSTATin 10 MG Tab PO SCH (21:00)
--- NOTE | 2021-03-03 17:13 | ECHO ---
The echocardiogram report can be seen in this patient's EMR (Electronic Medical Record) in the Reports section. The report has also been scanned into PACS. [facility]
== END 2021-02-27 13:00 | disposition home or self-care (01) ==
LOC: MW.ED 12:24 → MW.MS 18:17
PROVIDERS: ADMIT Student in an Organized Health Care Education/Training Program; ATTEND Student in an Organized Health Care Education/Training Program
DX: R07.9 Chest pain, unspecified (principal); R00.1 Bradycardia, unspecified; R42 Dizziness and giddiness; F17.210 Nicotine dependence, cigarettes, uncomplicated; E66.9 Obesity, unspecified; Z79.82 Long term (current) use of aspirin; Z20.822 Contact with and (suspected) exposure to COVID-19; Z88.2 Allergy status to sulfonamides; Z79.899 Other long term (current) drug therapy; Z98.890 Other specified postprocedural states; Z68.36 Body mass index [BMI] 36.0-36.9, adult
CPT/HCPCS: 36415; 70470; 71046; 80053; 80061; 82550; 83036; 83690; 83735; 84100; 84443; 84484; 85025; 87635; 93005; 93306; 99285; A9270; J7120; Q9967; 99219; G0378; U0002